=== PATIENT | female | born 1960 | race Caucasian/White ===

== ENCOUNTER → 2018-11-10 09:54 | Day surgery (SDC) | payer BC ==
--- NOTE | 2018-11-09 14:39 | HP ---
CC: Dr. Lance * ADMITTING HISTORY AND PHYSICAL: DATE OF ADMISSION: 11/10/18 ADMITTING DIAGNOSES: 1. Right hydronephrosis. 2. Obstructing calculus, right proximal ureter. PLANNED PROCEDURE: Right ureteral stent insertion (to be possibly followed in the near future by shockwave lithotripsy or laser lithotripsy). SURGEON: Dr. De. HISTORY OF PRESENT ILLNESS: Jody Marquez is a 58-year-old lady, who initially has right flank pain, nausea and vomiting approximately 2 days ago. She was evaluated initially in the ER and subsequently in my office. On the CT, she was noted to have a 5 mm calculus in the area of the right ureteropelvic junction and when seen in the office, she had persistent moderate right hydronephrosis with what appears to be an almost 7 mm calculus just below the ureteropelvic junction. She is now being brought in for right stent insertion ( likely to be followed in the near future by lithotripsy). PAST MEDICAL HISTORY: Significant for: 1. Hypothyroidism. 2. () 3. History of renal calculus in 2012. PAST SURGICAL HISTORY: Significant for D and C. MEDICATIONS ON ADMISSION: 1. Levothyroxine 112 mcg daily. 2. Vyvanse 40 mg daily. 3. Liquid B12 2000 mcg daily. 4. Airborne immune supplement daily. 5. Liquid vitamin D units daily. 6. Ibuprofen p.r.n. ALLERGIES: KEFLEX (hives). FAMILY HISTORY: Negative for stones. SOCIAL HISTORY: Smoking history: She quit smoking 40 years ago and had a 5- pack year smoking history prior to that. REVIEW OF SYSTEMS: She is otherwise in excellent health. There is no history of diabetes mellitus or any other major systemic illness. She denies any chest pain or shortness of breath. PHYSICAL EXAMINATION GENERAL: Reveals a pleasant healthy-appearing middle-aged lady. VITAL SIGNS: Blood pressure is 162/78, pulse 60 per minute and regular, temperature 98.5, oxygen saturation 92% on room air. LUNGS: Clear bilaterally. CARDIOVASCULAR: Regular rate and rhythm. S1, S2. ABDOMEN: Soft with mild right flank tenderness. IMPRESSION: A 58-year-old lady with an obstructing calculus in the right proximal ureter. PLAN: Planned procedure is right stent insertion, possibly to be followed in the near future by lithotripsy. [id number]/[facility] #: [id number] ALBA
[~2018-11-10 09:54] MED LIST: Buffered Lidocaine 1% SYRIN* 1 ML/SYRINGE INTRADERM ONE; Chloroprocaine 2%* 20 ML VIAL ONE; Dexamethasone IV* 4 MG/ML 1 ML (4 MG) ONE; Gentamicin ADULT (*) 160 MG in NS 0.9% 100 ML* 100 ML IVPB ONE; Iohexol 180 (CONTRAST) 10 ML SDV IV ONE; Lactated Ringers 1000 ML Bag* 1,000 ML IV SCH; Levofloxacin 500 MG IVPREMIX(* 500 MG/100 ML BAG IVPB ONE; Lidocaine 2% PF * 5 ML VIAL ONE; Metoclopramide IV* 5 MG/ML 2 ML VIAL ONE; Midazolam* 1 MG/ML 2 ML VIAL (2 MG) ONE; Ondansetron INJ* 2 MG/ML VIAL ONE; Propofol* 10 MG/ML 20 ML BTL ONE; fentaNYL* 50 MCG/ML 2 ML VIAL (100 MCG VIAL) ONE
--- NOTE | 2018-11-10 12:55 | OP ---
CC: Dr. Lance * DATE OF OPERATION: 11/10/18 - [facility] DATE OF : 56 SURGEON: Leobardo De MD. ANESTHESIOLOGIST: Dr. Perez. ANESTHESIA: General. PRE-OP DIAGNOSES: 1. Right hydronephrosis. 2. Obstructing calculus, right proximal ureter. POST-OP DIAGNOSES: 1. Right hydronephrosis. 2. Obstructing calculus, right proximal ureter. OPERATIVE PROCEDURE: Cystoscopy, right retrograde pyelogram, and right stent insertion. COMPLICATIONS: None. STENT USED: A 7-Occitan stent, right ureter. INDICATIONS: Jody Marquez is a 58-year-old lady who had been evaluated for an obstructing right proximal ureteral calculus. She is now being brought in for urgent right stent insertion to be followed at some point in the future by lithotripsy. POSTOPERATIVE CONDITION: Stable. OPERATIVE FINDINGS: 1. Normal-appearing bladder. 2. Right hydronephrosis with complete obstruction, right ureter and large amount of cloudy urine drained from the right kidney. DESCRIPTION OF PROCEDURE: After induction of general anesthesia, the patient was placed in dorsal lithotomy position. Sequential compression devices were in in place and functioning. Initial cystoscopy revealed normal-appearing bladder. Clear urine was seen effluxing from the left orifice. There was no urine seen effluxing from the right orifice suggesting a complete obstruction. A guidewire was introduced and advanced into the right ureter. Retrograde pyelogram revealed a moderate degree of right hydronephrosis with a dilated renal pelvis. The wire was advanced into the proximal collecting system. Once the open-ended catheter was advanced into the renal pelvis, there was a large amount of cloudy urine that drained from the right kidney. A specimen was sent for culture and sensitivity. Next, under fluoroscopic monitoring, a 7-Occitan stent was introduced and positioned under fluoroscopy with good proximal and distal positioning obtained. The bladder was emptied. The patient tolerated the procedure satisfactorily and was transferred back to the recovery area in stable condition. My plan is to obtain a postoperative x-ray and see if the calculus is visible on the x-ray to determine the next step for definitive treatment of the calculus. [id number]/[facility] #: [id number] MTDD
[2018-11-10 13:34] VITALS: BP 141/71
== END | disposition home or self-care (01) ==
LOC: OR 09:54
PROVIDERS: ATTEND Urology
DX: N13.2 Hydronephrosis with renal and ureteral calculous obstruction (principal); E03.9 Hypothyroidism, unspecified; Z87.442 Personal history of urinary calculi; Z87.891 Personal history of nicotine dependence
CPT/HCPCS: 74420; 87086; C1876; J1100; J1580; J1956; J2250; J2400; J2405; J2704; J2765; J3010

== ENCOUNTER → 2018-11-14 13:14 | Day surgery (SDC) | payer BC ==
[~2018-11-14 13:14] MED LIST changes: -Chloroprocaine 2%* 20 ML VIAL ONE; +Famotidine IV* 10 MG/ML 2 ML (20 mg) IV ONE; +Famotidine IV* 10 MG/ML 2 ML (20 mg) ONE; -Gentamicin ADULT (*) 160 MG in NS 0.9% 100 ML* 100 ML IVPB ONE; -Iohexol 180 (CONTRAST) 10 ML SDV IV ONE; +Ketorolac INJ* 30 MG/ML 1 ML VIAL ONE; -Metoclopramide IV* 5 MG/ML 2 ML VIAL ONE; -Midazolam* 1 MG/ML 2 ML VIAL (2 MG) ONE; +Midazolam* 1 MG/ML 5 ML VIAL (5 MG) ONE; +Naloxone* 0.4 MG/ML 1 ML VIAL IV PRN; +Ondansetron INJ* 2 MG/ML VIAL IV PRN; +fentaNYL* 50 MCG/ML 2 ML VIAL (100 MCG VIAL) IV PRN; +oxyCODONE/Acetamin 5/325 MG* TAB PO PRN
[2018-11-14 17:38] VITALS: BP 161/92
--- NOTE | 2018-11-14 21:34 | OP ---
CC: Dr. Lance * DATE OF OPERATION: 11/14/18 - [facility] DATE OF : 56 SURGEON: Leobardo De M.D. ANESTHESIOLOGIST: Dr. Razo. ANESTHESIA: General. PRE-OP DIAGNOSIS: Right renal calculus. POST-OP DIAGNOSIS: OPERATIVE PROCEDURE: COMPLICATIONS: None. INDICATIONS: Jody Marquez is a 58-year-old lady who had undergone an urgent right stent insertion for an obstructing right ureteropelvic junction calculus. She is now being brought in for lithotripsy. POSTOPERATIVE CONDITION: Stable. DESCRIPTION OF PROCEDURE: After induction of general anesthesia, the patient was placed on the lithotripsy table in supine position. The calculus, which was faintly opaque, was identified in the right kidney using fluoroscopic monitor. Shockwave lithotripsy was commenced at a rate of 90 shocks per minute. After the initial 300 shocks, there was a pause in lithotripsy for several minutes in an effort to minimize any potential trauma to the kidney. Lithotripsy was then resumed and a total of 1200 shocks were delivered. The patient tolerated the procedure satisfactorily and was transferred back to the recovery area in stable condition. [id number]/[facility] #: [id number] MTDD
== END | disposition home or self-care (01) ==
LOC: OR 13:14
PROVIDERS: ATTEND Urology
DX: N20.0 Calculus of kidney (principal); Z87.891 Personal history of nicotine dependence; Z87.442 Personal history of urinary calculi; E03.9 Hypothyroidism, unspecified
CPT/HCPCS: 74018; J1100; J1885; J1956; J2250; J2405; J2704; J3010